=== PATIENT | male | born 1970 | race Caucasian/White ===

== ENCOUNTER 2024-07-23 20:38 | Inpatient (IN) | payer MEDICAID, OTHER ==
[~2024-07-23] VITALS: Ht 180.3 cm; Wt 130.9 kg
[~2024-07-23 20:38] MED LIST: CARV12.544 PO; DULA0.5I SC; LISI-707 PO; METF-372 PO
--- NOTE | 2024-07-23 20:55 | ED.PDOC ---
Musculoskeletal HPI Comments 54-year-old male came to ER via EMS for right foot pain. Patient has history of hypertension and diabetes, status post partial amputation right foot. Two days ago, patient went to his primary care provider for a right foot infection. Shortly afterwards, patient is started developing fever and chills, was having episodes nausea and vomiting. Patient unable to tolerate any intake. Upon arrival of paramedics, patient hypotensive at 60/33 mmHg, tachycardic at 110 bpm, febrile at 102 F Chief Complaint: Lower Extremity Time Seen by MD: 20:54 Reviewed Notes: Backend Developer Notes Allergies: Coded Allergies: No Known Drug Allergy (Verified Allergy, Unknown, 07/23/24) Information Source: Patient, Emergency Med Personnel Mode of Arrival: EMS Location: Right Extremity Location: Foot Timing: Days Prehospital treatment: None Severity: Moderate Able to Move Extremity: Yes Bear Weight: Limited Pain: Moderate Hand Dominance: Right Mechanism: Spontaneous Circumstances: Spontaneous Onset of Symptoms: Spontaneous Symptoms: Swelling, Pain Associated signs and symptoms: Foot pain (roght) Past Medical History PAST MEDICAL HISTORY: DM, HTN Surgical History (Other): Partial amputation right foot Family History Family History: Reviewed,noncontributory to illness Social History Smoker: Non-Smoker Alcohol: Denies ETOH Use Drugs: Denies Drug Use Lives In: Home Constitutional: reports: chills, fever; denies: diaphoresis, fatigue, malaise, sweats, weakness, others EENTM: denies: blurred vision, double vision, ear bleeding, ear discharge, ear drainage, ear pain, ear ringing, eye pain, eye redness, hearing loss, mouth pain, mouth swelling, nasal discharge, nose bleeding, nose congestion, nose pain, photophobia, tearing, throat pain, throat swelling, voice changes, others Respiratory: denies: cough, hemoptysis, orthopnea, SOB at rest, shortness of breath, SOB with excertion, stridor, wheezing, others Cardiovascular: denies: chest pain, dizzy spells, diaphoresis, Dyspnea on exertion, edema, irregular heart beat, left arm pain, lightheadedness, palpitations, PND, syncope, others Gastrointestinal: reports: nausea, poor appetite, vomiting; denies: abdomen distended, abdominal pain, blood streaked bowels, constipated, diarrhea, dysphagia, difficulty swallowing, hematemesis, melena, poor fluid intake, rectal bleeding, rectal pain, others Genitourinary: denies: burning, dysuria, flank pain, frequency, hematuria, incontinence, penile discharge, penile sore, pain, testicle pain, testicle swelling, urgency, others Neurological: denies: dizziness, fainting, headache, left sided numbness, left sided weakness, numbness, paresthesia, pre-existing deficit, right sided numbness, right sided weakness, seizure, speech problems, tingling, tremors, weakness, others Musculoskeletal: denies: back pain, gout, joint pain, joint swelling, muscle pain, muscle stiffness, neck pain, others Integumetry: reports: wounds (Partial amputation right foot); denies: bruises, change in color, change in hair/nails, dryness, laceration, lesions, lumps, rash, others Allergic/Immunocompromised: denies: Difficulty Healing, Frequent Infections, Hives, Itching, others Hematologic/Lymphatic: denies: anemia, blood clots, easy bleeding, easy bruising, swollen glands, others Endocrine: denies: excessive hunger, excessive sweating, excessive thirst, excessive urination, flushing, intolerance to cold, intolerance to heat, unexplained weight gain, unexplained weight loss, others Psychiatric: denies: anxiety, bipolar disorder, depression, hopeless, panic disorder, schizophrenia, sleepless, suicidal, others Physical Exam General Appearance: No Apparent Distress, Normal HEENT: Normal ENT Inspection, Pharynx Normal, TMs Normal Neck: Full Range of Motion, Non-Tender, Normal, Normal Inspection Respiratory: Chest Non-Tender, Lungs Clear, No Accessory Muscle Use, No Respiratory Distress, Normal Breath Sounds Cardiovascular: No Edema, No JVD, No Murmur, No Gallop, Normal Peripheral Pulses, Regular Rate/Rhythm Breast Exam: Deferred Gastrointestinal: No Organomegaly, Non Tender, No Pulsatile Mass, Normal Bowel Sounds, Soft Genitalia: Deferred Pelvic: Deferred Rectal: Deferred Extremities: No calf tenderness, Normal capillary refill, Normal range of motion, Non-tender, No pedal edema, Other (Partial amputation right foot) Musculoskeletal : Apperance: Normal Neurologic: Alert, nanosystems engineer II-XII nml as Tested, No Motor Deficits, Normal Affect, Normal Mood, No Sensory Deficits Cerebellar Function: Normal Reflexes: Normal Skin: Dry, Normal Color, Warm Lymphatic: No Adenopathy Was a procedure done? Was a procedure done?: No Differential Diagnosis EXT Differential Diagnosis: Cellulitis, Septic, Other (abscess) X-Ray, Labs, Meds, VS Vital Signs Date Time Temp Pulse Resp B/P (MAP) Pulse Ox O2 Delivery O2 Flow Rate FiO2 07/23/24 22:00 97.9 99 18 90/58 (69) 98 97.9 07/23/24 21:00 Nasal Cannula* 2 28 07/23/24 21:00 98.1 105 18 82/54 (63) 98 98.1 07/23/24 20:47 97.1 113 20 60/55 (57) 95 97.1 07/23/24 20:40 109 Lab Test 07/23/24 21:02 Range/Units White Blood Count 27.8 H 4.4-10.8 10^3/uL Red Blood Count 4.94 4.5-5.90 10^6/uL Hemoglobin 11.8 L 13.5-17.5 g/dL Hematocrit 37.2 L 41.0-53.0 % Mean Corpuscular Volume 75.3 L 80.0-100.0 fL Mean Corpuscular Hemoglobin 23.9 L 28.0-32.0 pg Mean Corpuscular Hemoglobin Concent 31.7 L 32.0-36.0 g/dL Red Cell Distribution Width 17.7 H 11.8-14.3 % Platelet Count 447 140-450 10^3/uL Mean Platelet Volume 7.5 6.9-10.8 fL Neutrophils (%) (Auto) 37.0-80.0 % Lymphocytes (%) (Auto) 10.0-50.0 % Monocytes (%) (Auto) 0.0-12.0 % Basophils (%) (Auto) 0.0-2.0 % Neutrophils # (Auto) 1.6-8.6 10 ^3/uL Lymphocytes # (Auto) 0.4-5.4 10 ^3/uL Monocytes # (Auto) 0-1.3 10 ^3/uL Differential Total Cells Counted 100.0 100 Neutrophils % (Manual) 80 37.0-80.0 Band Neutrophils % (Manual) 13 Lymphocytes % (Manual) 2 L 10.0-50.0 Monocytes % (Manual) 4 0-12 Eosinophils % (Manual) 0 0-7 Basophils % (Manual) 0 0.0-2.0 Metamyelocytes % (manual) 1 Myelocytes % (Manual) 0 Promyelocytes % (Manual) 0 Blast Cells % (Manual) 0 Reactive Lymphocytes 0 Platelet Estimate Adequate Hypochromasia (manual) Moderate Anisocytosis (manual) Slight Prothrombin Time 11.7 9.3-11.8 sec Prothrombin Time INR 1.12 0.9-1.15 Activated Partial Thromboplast Time 30.0 24.5-34.5 SEC Sodium Level 132 L 136-145 mmol/L Potassium Level 4.0 3.5-5.1 mmol/L Chloride Level 101 98-107 mmol/L Carbon Dioxide Level 21 20-31 mmol/L Anion Gap 10 5-15 Blood Urea Nitrogen 25 H 9-23 mg/dL Creatinine 1.73 H 0.700-1.30 mg/dL Glomerular Filtration Rate Calc 46 >90 mL/min BUN/Creatinine Ratio 14.5 10.0-20.0 Serum Glucose 253 H 74-106 mg/dL Lactic Acid Level 2.1 *H 0.4-2.0 mmol/L Calcium Level 9.6 8.7-10.4 mg/dL Total Bilirubin 1.1 H 0.2-1.0 mg/dL Aspartate Amino Transferase (AST) 8 L 13-40 U/L Alanine Aminotransferase (ALT) < 9 7-40 U/L Alkaline Phosphatase 70 46-116 U/L Total Protein 7.9 5.7-8.2 g/dL Albumin 4.1 3.2-4.8 g/dL Current Medications Medications (Trade) Dose Ordered Sig/Nimesh Route Start Time Stop Time Status Last Admin Piperacillin Sod/ Tazobactam Sod 100 ml @ 100 mls/hr ONCE ONCE IV 07/23/24 21:00 07/23/24 21:59 DC 07/23/24 21:29 Vancomycin HCl 200 ml @ 200 mls/hr ONCE ONCE IV 07/23/24 21:00 07/23/24 21:59 DC 07/23/24 22:30 Sodium Chloride 2,000 ml @ 1,000 mls/hr Q2H ONCE IV 07/23/24 21:30 07/23/24 23:29 07/23/24 21:29 Time of 1ST Reevaluation: 20:49 Reevaluation 1ST: Unchanged Patient Education/Counseling: Diagnosis, Treatment Family Education/Counseling: No Family Present Departure 1 Departure Time of Disposition: 22:33 Impression: Primary Impression: Cellulitis of right foot Additional Impression: Diabetic foot ulcer Disposition: 09 ADMITTED INPATIENT Condition: Guarded Discharged With: Self Comments Right Foot Infection with Hypotension Chief Complaint: Right foot wound with fever and hypotension History of Present Illness: 54-year-old male with history of type 2 diabetes and right foot partial amputation presents with worsening right foot wound of one month duration. Patient reports associated malaise, nausea, and vomiting for the past two days. EMS brought patient to ED due to hypotension. The wound is located at the distal end of his partial right foot amputation site, which was performed several months ago. Patient was found to be hypotensive on arrival. Review of Systems: Constitutional: Positive for malaise Gastrointestinal: Positive for nausea and vomiting Skin: Right foot wound All other systems reviewed and negative Medications: Not documented in foreign student adviser Allergies: Not documented in foreign student adviser Past Medical History: 1. Type 2 Diabetes Mellitus 2. Hypertension Past Surgical History: Right foot partial amputation Vital Signs: Initial presentation: Hypotensive After fluid resuscitation: BP 94/63 Physical Exam: Right Foot: - 4cm diameter open ulceration at the distal end of partial amputation site - Significant swelling noted Lab Results: WBC: 27.8 (Elevated) Lactic acid: 2.1 (Elevated) Creatinine: 1.73 (Elevated) BUN: 25 Glucose: 253 Imaging and Other Relevant Results: Right Foot X-ray: - Significant soft tissue swelling - Radiologist recommends MRI to rule out osteomyelitis Medical Decision Making: Summary Statement: 54-year-old diabetic male presents with infected right foot wound, sepsis, and hypotension requiring fluid resuscitation and broad-spectrum antibiotics. Problem List: 1. Right foot infection/cellulitis 2. Sepsis with hypotension 3. Acute kidney injury 4. Poorly controlled diabetes Differential Diagnosis: 1. Cellulitis 2. Osteomyelitis 3. Sepsis 4. Diabetic foot infection 5. Deep tissue infection ED Course: Patient received 30cc/kg IV fluid bolus for hypotension. Started on broad-spectrum antibiotics (Vancomycin and Zosyn). Blood pressure improved after fluid resuscitation. Assessment and Plan: 1. Right Foot Infection/Cellulitis: - Admit for IV antibiotics (Vancomycin and Zosyn) - MRI of right foot to evaluate for osteomyelitis - Wound care consultation 2. Sepsis with Hypotension: - Responded to initial fluid resuscitation - Continue to monitor hemodynamics - Serial lactate measurements 3. Acute Kidney Injury: - Likely pre-renal due to sepsis - Monitor urine output - Serial creatinine measurements 4. Diabetes: - Continue home medications - Endocrine consultation Disposition: Admit to medical floor with upgrade to ICU if clinical deterioration Billing Information: ICD-10: L03.115 - Cellulitis of right lower limb ICD-10: R65.20 - Severe sepsis without septic shock ICD-10: E11.621 - Type 2 diabetes mellitus with foot ulcer ICD-10: N17.9 - Acute kidney injury, unspecified Critical Care Note Critical Care Time?: Yes (45 min-critical care time only) Critical care comment: Hypotension Total critical care time: Approximately 36 minutes Due to a high probability of clinically significant, life threatening deterioration, the patient required my highest level of preparedness to intervene emergently and I personally spent this critical care time directly and personally managing the patient. This critical care time included obtaining a history; examining the patient; pulse oximetry; ordering and review of studies; arranging urgent treatment with development of a management plan; evaluation of patient's response to treatment; frequent reassessment; and, discussions with other providers. This critical care time was performed to assess and manage the high probability of imminent, life-threatening deterioration that could result in multi-organ failure. It was exclusive of separately billable procedures and treating other patients. Stability Stability form required: No Heart Score Heart Score: Heart Score Response (Comments) Value History N/A 0 EKG N/A 0 Age N/A 0 Risk Factors N/A 0 Troponin N/A 0 Total 0 I personally scribed for MARK THOMPSON MD ([email or web address]) on 07/23/24 at 20:55. Electronically submitted by Oren Martinez ([email or web address]). MARK THOMPSON MD Jul 23, 2024 20:55
[2024-07-23 21:24] LABS: Hematocrit 37.2 % (41.0-53.0); Hemoglobin 11.8 g/dL (13.5-17.5); Mean Corpuscular Hemoglobin 23.9 pg (28.0-32.0); Mean Corpuscular Hgb Conc. 31.7 g/dL (32.0-36.0); Mean Corpuscular Volume 75.3 fL (80.0-100.0); Platelet Count (auto) 447 10^3/uL (140-450); Red Blood Cells 4.94 10^6/uL (4.5-5.90); Red Cell Distribution Width 17.7 % (11.8-14.3); White Blood Cell 27.8 10^3/uL (4.4-10.8)
[2024-07-23 21:27] LABS: Basophils % (manual) 0 (0.0-2.0); Blast Cells 0; Eosinophils % (manual) 0 (0-7); Myelocytes % 0; Promyelocytes % 0; Reactive Lymphocytes 0
--- NOTE | 2024-07-23 21:27 | DVH ---
C so many EXAM: XY R FOOT 3 VIEW XRAY HISTORY: right foot infection s/p partial amputation COMPARISON: None TECHNIQUE: Three views of the right foot were performed. FINDINGS: Patient has had a amputation of the forefoot at the level of the tarsometatarsal joints. The middle m edial and lateral cuneiforms are still present cuboid is nearly disintegrated. There is generalized soft tissue swelling and a very large osteophyte at the attachment of the Achill es to the calcaneus in small plantar spur at the attachment of the plantar fascia of the calcaneus. There is demineralization of the remnant cuboid. Follow-up MRI examination is suggested to rule out osteomyelitis IMPRESSION: 1. Patient underwent midfoot amputation and there is fragmentation of the remaining cuboid. And signi ficant soft tissue swelling. Follow-up MRI is recommended
--- NOTE | 2024-07-23 21:28 | DVH ---
CHEST RADIOGRAPH Indication: SOB Technique: Single frontal view of the chest was obtained Comparison: None FINDINGS: Lines and Tubes: None Lungs: Clear Pleura: No effusion. No pneumothorax. Cardiomediastinal contours: Mild cardiomegaly Bones: Unremarkable IMPRESSION: Clear lungs.
[2024-07-23] MEDS: SODIUM CHLORIDE 0.9% 2,000 ML IV ONE (21:29)
[2024-07-23] MEDS: PIPERACILLIN-TAZOB 3.375GM 100 ML IV ONE (21:29)
[2024-07-23 21:37] LABS: Albumin 4.1 g/dL (3.2-4.8); Alkaline Phosphatase 70 U/L (46-116); Anion Gap 10 (5-15); BUN/Creatinine Ratio 14.5 (10.0-20.0); Bilirubin, Total 1.1 mg/dL (0.2-1.0); Calcium 9.6 mg/dL (8.7-10.4); Carbon Dioxide 21 mmol/L (20-31); Chloride 101 mmol/L (98-107); Total Protein 7.9 g/dL (5.7-8.2)
[2024-07-23 21:38] LABS: Alanine Aminotransferase < 9 U/L (7-40); Aspartate Aminotransferase 8 U/L (13-40); Blood Urea Nitrogen 25 mg/dL (9-23); Glucose 253 mg/dL (74-106); Sodium 132 mmol/L (136-145)
[2024-07-23 21:39] LABS: INR 1.12 (0.9-1.15); Prothrombin Time 11.7 sec (9.3-11.8)
[2024-07-23 21:40] LABS: Lactic Acid w/Reflex 2.1 mmol/L (0.4-2.0)
[2024-07-23 22:05] LABS: Anisocytosis Slight; Band Neutrophils % (manual) 13; Lymphocytes % (manual) 2 (10.0-50.0); Metamyelocytes % 1; Monocytes % (manual) 4 (0-12); Platelet Estimate Adequate
[2024-07-23 22:06] LABS: Hypochromia Moderate
[2024-07-23] MEDS: SODIUM CHLORIDE 0.9% 2,250 ML IV ONE (22:30)
[2024-07-23] MEDS: VANCOMYCIN 1GM/200ML PM 200 ML IV ONE (22:30)
[2024-07-23] MEDS ORDERED: DEXTROSE (50%) 50ML SYRG IV PRN (22:45)
[2024-07-23] MEDS ORDERED: VANCOMYCIN PER PHARMACY 0 MG IV SCH (22:45)
[2024-07-23] MEDS: SODIUM CHLORIDE 0.9% 1,000 ML IV ONE (22:57)
--- NOTE | 2024-07-23 23:15 | DVHHP2 ---
History of Present Illness Reason for Visit: foot injury History of Present Illness 54-year-old male past medical history of diabetes hypertension comes to the ED for evaluation status post partial right foot amputation patient had surgery 2 days ago and has severe midfoot soft tissue swelling x-ray was completed showing severe edema patient during evaluation in the ED was shown to be febrile with temperatures as high as 102 possible with tachycardia hypotension with suspected sepsis secondary to infection Cardiovascular: HTN Dermatology: Cellulitis Review of Systems Constitutional: Yes: Fever Eyes: No: Pain, Vision change, Conjunctivae inflammation, Eyelid inflammation, Other, Redness ENT: No: Ear pain, Ear discharge, Nose pain, Nose discharge, Nose congestion, Mouth pain, Mouth swelling, Throat pain, Throat swelling, Other Respiratory: No: Cough, Dry, Shortness of breath, SOB with excertion, Wheezing, Hemoptysis, Pleuritic Pain, Sputum, Wheezing, Other Cardiovascular: No: Chest Pain, Palpitations, Orthopnea, Paroxysmal Noc. Dyspnea, Edema, Lt Headedness, Other Gastrointestinal: Nausea, Vomiting; No: Abdominal Pain, Diarrhea, Constipation, Melena, Hematochezia, Other Genitourinary: No Dysuria, No Frequency, No Incontinence, No Hematuria, No Retention, No Other Musculoskeletal: No: other, neck pain, shoulder pain, arm pain, back pain, hand pain, leg pain, foot pain Skin: No: Rash, Lesions, Jaundice, Bruising, Other Neurological: Weakness Allergies: Coded Allergies: No Known Drug Allergy (Verified Allergy, Unknown, 07/23/24) Exam Vital Signs Vital Signs Date Time Temp Pulse Resp B/P (MAP) Pulse Ox O2 Delivery O2 Flow Rate FiO2 07/23/24 22:00 97.9 99 18 90/58 (69) 98 97.9 07/23/24 21:00 Nasal Cannula* 2 28 Exam General Appearance: No Apparent Distress, Normal HEENT: Normal ENT Inspection, Pharynx Normal, TMs Normal Neck: Full Range of Motion, Non-Tender, Normal, Normal Inspection Respiratory: Chest Non-Tender, Lungs Clear, No Accessory Muscle Use, No Respiratory Distress, Normal Breath Sounds Cardiovascular: No Edema, No JVD, No Murmur, No Gallop, Normal Peripheral Pulses, Regular Rate/Rhythm Breast Exam: Deferred Gastrointestinal: No Organomegaly, Non Tender, No Pulsatile Mass, Normal Bowel Sounds, Soft Genitalia: Deferred Pelvic: Deferred Rectal: Deferred Extremities: No calf tenderness, Normal capillary refill, Normal range of motion, Non-tender, No pedal edema, Other (Partial amputation right foot) Musculoskeletal : Appearance: Normal Neurologic: Alert, surveillance camera technician II-XII nml as Tested, No Motor Deficits, Normal Affect, Normal Mood, No Sensory Deficits Cerebellar Function: Normal Reflexes: Normal Skin: Dry, Normal Color, Warm Lymphatic: No Adenopathy Labs/Xrays Labs Test 07/23/24 21:02 Range/Units White Blood Count 27.8 H 4.4-10.8 10^3/uL Red Blood Count 4.94 4.5-5.90 10^6/uL Hemoglobin 11.8 L 13.5-17.5 g/dL Hematocrit 37.2 L 41.0-53.0 % Mean Corpuscular Volume 75.3 L 80.0-100.0 fL Mean Corpuscular Hemoglobin 23.9 L 28.0-32.0 pg Mean Corpuscular Hemoglobin Concent 31.7 L 32.0-36.0 g/dL Red Cell Distribution Width 17.7 H 11.8-14.3 % Platelet Count 447 140-450 10^3/uL Mean Platelet Volume 7.5 6.9-10.8 fL Neutrophils (%) (Auto) 37.0-80.0 % Lymphocytes (%) (Auto) 10.0-50.0 % Monocytes (%) (Auto) 0.0-12.0 % Basophils (%) (Auto) 0.0-2.0 % Neutrophils # (Auto) 1.6-8.6 10 ^3/uL Lymphocytes # (Auto) 0.4-5.4 10 ^3/uL Monocytes # (Auto) 0-1.3 10 ^3/uL Differential Total Cells Counted 100.0 100 Neutrophils % (Manual) 80 37.0-80.0 Band Neutrophils % (Manual) 13 Lymphocytes % (Manual) 2 L 10.0-50.0 Monocytes % (Manual) 4 0-12 Eosinophils % (Manual) 0 0-7 Basophils % (Manual) 0 0.0-2.0 Metamyelocytes % (manual) 1 Myelocytes % (Manual) 0 Promyelocytes % (Manual) 0 Blast Cells % (Manual) 0 Reactive Lymphocytes 0 Platelet Estimate Adequate Hypochromasia (manual) Moderate Anisocytosis (manual) Slight Prothrombin Time 11.7 9.3-11.8 sec Prothrombin Time INR 1.12 0.9-1.15 Activated Partial Thromboplast Time 30.0 24.5-34.5 SEC Sodium Level 132 L 136-145 mmol/L Potassium Level 4.0 3.5-5.1 mmol/L Chloride Level 101 98-107 mmol/L Carbon Dioxide Level 21 20-31 mmol/L Anion Gap 10 5-15 Blood Urea Nitrogen 25 H 9-23 mg/dL Creatinine 1.73 H 0.700-1.30 mg/dL Glomerular Filtration Rate Calc 46 >90 mL/min BUN/Creatinine Ratio 14.5 10.0-20.0 Serum Glucose 253 H 74-106 mg/dL Lactic Acid Level 2.1 *H 0.4-2.0 mmol/L Calcium Level 9.6 8.7-10.4 mg/dL Total Bilirubin 1.1 H 0.2-1.0 mg/dL Aspartate Amino Transferase (AST) 8 L 13-40 U/L Alanine Aminotransferase (ALT) < 9 7-40 U/L Alkaline Phosphatase 70 46-116 U/L Total Protein 7.9 5.7-8.2 g/dL Albumin 4.1 3.2-4.8 g/dL Assessment/Plan Assessment/Plan Admit to step-down unit due to hypotension Right diabetic foot ulcer Status post partial amputation Suspected right foot osteomyelitis Patient meets sepsis criteria Podiatry consultation History of stated JONATHAN Currently elevated creatinine at 1.7 BUN of 25 IV hydration IV antibiotics vanco and Zosyn History of diabetes Insulin sliding scale aggressive ACH MRI ordered for soft tissue evaluation and bone evaluation of her suspected osteo ICD-10: L03.115 - Cellulitis of right lower limb ICD-10: R65.20 - Severe sepsis without septic shock Suspected osteomyelitis ICD-10: E11.621 - Type 2 diabetes mellitus with foot ulcer ICD-10: N17.9 - Acute kidney injury, unspecified Critical care time 45 minutes Plan discussed with: Patient My Orders Orders - JESSICA MORALEZ MD Procedure Category Date Status Time Admit ADMIT 07/23/24 Transmitted 22:34 Code Status CODE 07/23/24 Transmitted 22:34 Vital Signs DEENA 07/23/24 In Process 22:34 Review Orders With DEENA 07/23/24 In Process Adm. 22:34 Notify Md Of Changes [facility] 07/23/24 In Process From Base 22:34 Advance Directive DEENA 07/23/24 In Process 22:34 Patient Condition ORDERS 07/23/24 Transmitted 22:34 Allergies DEENA 07/23/24 In Process 22:34 Notify Md Of Changes [facility] 07/23/24 In Process From Base 22:34 Surgical Instrument Technician For [facility] 07/23/24 In Process 24 Hours 22:34 Emergency Dysrhythmia DEENA 07/23/24 In Process Protocol 22:34 Rhythm Strips Once DEENA 07/23/24 In Process Every Shift 22:34 Oxygen By Nasal RT 07/23/24 Transmitted Cannula 22:34 Vancomycin Per PHA 07/23/24 Pending Pharmacy 22:45 Piperacillin-Tazob PH[facility] 07/24/24 In Process 3.375gm (Zosyn 3.375g 06:00 Sodium Chloride 0.9% PHA 07/23/24 In Process 22:45 *Podiat[address] Consult Dr[address] NIX 07/23/24 Transmitted Fanous 22:34 Glucose Blood PHA 07/24/24 In Process (Accu-Chek Comfort 07:00 Insulin R (Human) PHA 07/24/24 In Process (Insulin R) 07:00 Insulin R (Human) PHA 07/24/24 In Process (Insulin R) 22:00 Dextrose 50% Syringe PHA 07/23/24 In Process 22:45 Mri R Foot Wo Contrast MRI 07/23/24 Logged 22:34 Consistent DIET 07/24/24 Transmitted Carb(Ccho)Diabetes Breakfast Date of Service: Jul 23, 2024 Billing Provider: JESSICA MORALEZ MD Common Visit Codes: [id number]-[id number] CARE 30-74 MIN JESSICA MORALEZ MD Jul 23, 2024 23:15
[2024-07-24] VITALS (18 sets, daily range): BP systolic 90–130; BP diastolic 45–76; PULSE 77–102; RESP 11–19; TEMP 97.5–98; O2SAT 90–100
[2024-07-24] MEDS: SODIUM CHLORIDE 0.9% 1,000 ML IV SCH ×2 (01:30→11:09)
[2024-07-24] MEDS: PIPERACILLIN-TAZOB 3.375GM 100 ML IV SCH (06:11)
[2024-07-24] MEDS: ACCU-CHEK COMFORT CURVE STRIP VI SCH (06:26)
[2024-07-24] MEDS: InsuLIN REG 1unit/0.01ml Soln (100units/ml) SC SCH ×2 (06:29→21:48)
--- NOTE | 2024-07-24 10:17 | ECG ---
[facility] Test Date: 2024-07-23 Test Time: 20:40:08 Pat Name: SULY GOEL Department: ED Room: 0283T Gender: M Inside Phone Sales: ER : 1970 Requested By: MARK THOMPSON Order Number: [id number] Reading MD: Rafael Nelson Measurements Intervals [place] Rate: 109 P: 52 NV: 149 QRS: 22 QRSD: 94 T: 60 QT: 338 QTc: 456 Interpretive Statements Sinus tachycardia Baseline wander in lead(s) V1 Electronically Signed On 07-26-2024 20:25:14 PDT by Rafael Nelson Please click the below link to view image of tracing.
[2024-07-24 10:51] LABS: Albumin 3.6 g/dL (3.2-4.8); Alkaline Phosphatase 62 U/L (46-116); Anion Gap 9 (5-15); Aspartate Aminotransferase 23 U/L (13-40); BUN/Creatinine Ratio 19.1 (10.0-20.0); Carbon Dioxide 21 mmol/L (20-31); Chloride 104 mmol/L (98-107); Total Protein 6.9 g/dL (5.7-8.2)
[2024-07-24 10:52] LABS: Bilirubin, Total 0.5 mg/dL (0.2-1.0)
[2024-07-24 10:55] LABS: Alanine Aminotransferase < 9 U/L (7-40); Blood Urea Nitrogen 29 mg/dL (9-23); Calcium 8.7 mg/dL (8.7-10.4); Glucose 259 mg/dL (74-106); Sodium 134 mmol/L (136-145)
[2024-07-24 10:57] LABS: Basophils # (auto) 0.1 10 ^3/uL (0-0.2); Basophils % (auto) 0.5 % (0.0-2.0); Eosinophils # (auto) 0.2 10 ^3/uL (0-0.8); Eosinophils % (auto) 1.2 % (0.0-7.0); Hematocrit 32.9 % (41.0-53.0); Hemoglobin 10.6 g/dL (13.5-17.5); Lymphocytes # (auto) 1.5 10 ^3/uL (0.4-5.4); Lymphocytes % (auto) 7.9 % (10.0-50.0); Mean Corpuscular Hemoglobin 24.1 pg (28.0-32.0); Mean Corpuscular Hgb Conc. 32.1 g/dL (32.0-36.0); Mean Corpuscular Volume 74.9 fL (80.0-100.0); Monocytes # (auto) 1.1 10 ^3/uL (0-1.3); Monocytes % (auto) 5.8 % (0.0-12.0); Neutrophils % (auto) 84.6 % (37.0-80.0); Nucleated Red Blood Cells % 0.3 %; Platelet Count (auto) 372 10^3/uL (140-450); Red Cell Distribution Width 17.8 % (11.8-14.3); White Blood Cell 18.9 10^3/uL (4.4-10.8)
--- NOTE | 2024-07-24 12:05 | DVH ---
CLINICAL INDICATION: 54 years old, Male; suspected osteo. COMPARISON: Radiographs of the right foot performed on 07/24/2024. TECHNIQUE: Multiplanar, multisequence MRI of the right foot without intravenous contrast. Contrast: None. INTERPRETATION: Bones: There is evidence of amputation at the level of the midfoot. There is hypointensity in the ca lcaneus, navicular bone, cuneiforms with corresponding edema consistent with osteomyelitis. Soft tissues: Diffuse soft tissue edema at the resection margin in the foot extending to the plantar surface of the foot where there soft tissue thickening. There are joint effusions in between the cun eiforms and at the talonavicular and calcaneocuboid joint. There is an ankle joint effusion. IMPRESSION: 1. Osteomyelitis involving the calcaneus, navicular and cuneiforms. 2. Diffuse cellulitis in the midfoot.
--- NOTE | 2024-07-24 12:41 | DVHINCON2 ---
Date Seen: Jul 24, 2024 Reason for Consultation Right foot wound History of Present Illness Patient is a 54-year-old male who presents to the ER for evaluation of the right foot wound. Patient has been seeing Wound Care right [place]. Patient had recent debridement. Patient was previously in the hospital at [facility] infection in his right foot. Patient was sent over to Infectious Disease to get IV antibiotics. Patient was told to go to the ER if he was feeling fevers and chills. Patient is now following up in the ER due to fevers, chills. Past Medical History See H&P Past Surgical History See H&P Allergies: Coded Allergies: No Known Drug Allergy (Verified Allergy, Unknown, 07/23/24) Current Medications Current Medications Medications (Trade) Dose Ordered Sig/Nimesh Route PRN Reason Start Time Stop Time Status Last Admin Vancomycin HCl 0 ml @ 0 mls/hr UD IV 07/23/24 22:45 Piperacillin Sod/ Tazobactam Sod 100 ml @ 100 mls/hr Q8HP IV 07/24/24 06:00 07/24/24 06:11 Sodium Chloride 1,000 ml @ 30 mls/hr Q24H IV 07/23/24 22:45 07/24/24 10:08 DC 07/24/24 01:30 Diagnostic Test (Pha) (Accu-Chek Comfort Curve T) 1 strip ACHS 07/24/24 07:00 07/24/24 11:30 Insulin Human Regular (InsuLIN R) AC SC 07/24/24 07:00 07/24/24 12:01 Insulin Human Regular (InsuLIN R) HS SC 07/24/24 22:00 Dextrose 50 ml UD PRN IV Blood Sugar LESS THAN 60 07/23/24 22:45 Sodium Chloride 1,000 ml @ 150 mls/hr Q6H40M IV 07/24/24 10:15 07/24/24 11:09 Vital Signs Vital Signs Date Time Temp Pulse Resp B/P (MAP) Pulse Ox O2 Delivery O2 Flow Rate FiO2 07/24/24 11:00 85 14 105/55 (72) 07/24/24 10:00 96 07/24/24 09:04 Nasal Cannula* 2 28 07/24/24 09:00 97.5 97.5 Physical Exam Dermatological: Skin is dry with mild erythema and some maceration around the wound site TMA of the right foot Mild non-pitting edema present bilaterally Wound: Location:Right plantar foot Measures: 6 cm in length, 4 cm in width, and 1 cm in depth. Depth: Full thickness Base: Mix of granulation/slough Drainage: None Odor: None Periwound: cellulitis Vascular: Dorsalis pedis and posterior tibial pulses are 1+ bilaterally Capillary refill is under 2 seconds Skin temperature is warm bilaterally Neurologic: Protective sensation is absent on the plantar forefoot bilaterally Monofilament testing reveals decreased sensation in multiple plantar sites Musculoskeletal: Range of motion at the ankle and MTP joints is within normal limits. Strength is 5/5 in all tested muscle groups. Gait is antalgic due to offloading of the affected limb. Labs/Diagnostic Data Labs Test 07/24/24 11:51 07/24/24 09:15 07/23/24 22:53 07/23/24 21:02 Range/Units POC Glucose 191 H 70-106 mg/dl White Blood Count 18.9 #H 4.4-10.8 10^3/uL Red Blood Count 4.40 L 4.5-5.90 10^6/uL Hemoglobin 10.6 L 13.5-17.5 g/dL Hematocrit 32.9 #L 41.0-53.0 % Mean Corpuscular Volume 74.9 L 80.0-100.0 fL Mean Corpuscular Hemoglobin 24.1 L 28.0-32.0 pg Mean Corpuscular Hemoglobin Concent 32.1 32.0-36.0 g/dL Red Cell Distribution Width 17.8 H 11.8-14.3 % Platelet Count 372 140-450 10^3/uL Mean Platelet Volume 8.0 6.9-10.8 fL Neutrophils (%) (Auto) 84.6 H 37.0-80.0 % Lymphocytes (%) (Auto) 7.9 L 10.0-50.0 % Monocytes (%) (Auto) 5.8 0.0-12.0 % Eosinophils (%) (Auto) 1.2 0.0-7.0 % Basophils (%) (Auto) 0.5 0.0-2.0 % Neutrophils # (Auto) 16.0 H 1.6-8.6 10 ^3/uL Lymphocytes # (Auto) 1.5 0.4-5.4 10 ^3/uL Monocytes # (Auto) 1.1 0-1.3 10 ^3/uL Eosinophils # (Auto) 0.2 0-0.8 10 ^3/uL Basophils # (Auto) 0.1 0-0.2 10 ^3/uL Nucleated Red Blood Cells 0.3 % Sodium Level 134 L 136-145 mmol/L Potassium Level 5.0 3.5-5.1 mmol/L Chloride Level 104 98-107 mmol/L Carbon Dioxide Level 21 20-31 mmol/L Anion Gap 9 5-15 Blood Urea Nitrogen 29 H 9-23 mg/dL Creatinine 1.52 H 0.700-1.30 mg/dL Glomerular Filtration Rate Calc 54 >90 mL/min BUN/Creatinine Ratio 19.1 10.0-20.0 Serum Glucose 259 H 74-106 mg/dL Hemoglobin A1c 9.2 H <5.7 % A1C Calcium Level 8.7 8.7-10.4 mg/dL Magnesium Level 1.5 L 1.6-2.6 mg/dL Total Bilirubin 0.5 0.2-1.0 mg/dL Aspartate Amino Transferase (AST) 23 13-40 U/L Alanine Aminotransferase (ALT) < 9 7-40 U/L Alkaline Phosphatase 62 46-116 U/L Total Protein 6.9 5.7-8.2 g/dL Albumin 3.6 3.2-4.8 g/dL Lactic Acid Level 1.4 0.4-2.0 mmol/L Differential Total Cells Counted 100.0 100 Neutrophils % (Manual) 80 37.0-80.0 Band Neutrophils % (Manual) 13 Lymphocytes % (Manual) 2 L 10.0-50.0 Monocytes % (Manual) 4 0-12 Eosinophils % (Manual) 0 0-7 Basophils % (Manual) 0 0.0-2.0 Metamyelocytes % (manual) 1 Myelocytes % (Manual) 0 Promyelocytes % (Manual) 0 Blast Cells % (Manual) 0 Reactive Lymphocytes 0 Platelet Estimate Adequate Hypochromasia (manual) Moderate Anisocytosis (manual) Slight Prothrombin Time 11.7 9.3-11.8 sec Prothrombin Time INR 1.12 0.9-1.15 Activated Partial Thromboplast Time 30.0 24.5-34.5 SEC Microbiology Date/Time Source Procedure Growth Status 07/23/24 20:50 Blood Blood Culture - Preliminary Resulted Problems(with codes): (1) Diabetic foot ulcer (2) Cellulitis of right foot Plan/Recommendation ASSESSMENT: Patient is a 54-year-old seen in the ER for a right foot wound PLAN: - The patients chart was reviewed, clinical findings were discussed with the patient, the etiologies of the conditions were discussed in detail, and a treatment plan was agreed to at this time, with both oral and written instructions provided. - reviewed advanced imaging - discussed with no abscess found would not pursue amputation as it would require a BKA at this point - recommend patient continues local wound care - patient will need 6 weeks of IV antibiotics - we will follow up with his outpatient sports development officer All questions were answered and concerns addressed to the patient's satisfaction. The patient was given the phone number to the clinic and was told how to make contact with the clinic should any concerns or questions arise. Patient understands that if any questions or concerns arise prior to the next appointment, we should be contacted immediately. FOLLOW-UP: Continue to follow while inpatient Plan discussed with: Patient Date of Service: Jul 24, 2024 Billing Provider: TRE KHAN DPM Common Visit Codes: CONSULT ONLY Consultation Codes: [id number] CONSULT <80MIN TRE KHAN DPM Jul 24, 2024 12:41
[2024-07-24] MEDS: MAGNESIUM SULFATE 1GM/100ML 100 ML IV SCH (13:04)
[2024-07-24 15:04] LABS: Urine Bacteria None Seen /hpf (None Seen)
[2024-07-24 15:27] LABS: Urine Blood Negative /uL (Negative); Urine Clarity Clear (Clear); Urine Color Yellow (Yellow); Urine Protein, UAD TRACE (Negative); Urine Specific Gravity 1.029 (1.001-1.035); Urine Squamous Epithelial Cell None Seen /hpf (<5); Urine Urobilinogen Normal (Negative); Urine WBC 2 /HPF (0-3); Urine pH 5.5 (5.0-9.0)
[2024-07-24 15:34] LABS: Opiate Scree,Urine Neg (NEGATIVE); Phencyclidine Screen, Urine Neg (NEGATIVE)
[2024-07-24 15:36] LABS: Amphetamine Screen, Urine Neg (NEGATIVE); Barbiturate Scree,Urine Neg (NEGATIVE); Benzodiazephine Screen, Urine Neg (NEGATIVE); Cannabinoid Screen, Urine Neg (NEGATIVE); Cocaine Screen, Urine Neg (NEGATIVE)
--- NOTE | 2024-07-24 17:01 | DVHPNRES ---
Progress Note Date Seen: Jul 24, 2024 Resident Creating Document: SHAREE ERICKSON MARCIO Has the PT tested + for MRSA If YES, has PT been informed?: No Medical Necessity Reason Pt with a Central, PICC or Fol: No Subjective Review of Systems This is a 54-year-old male with past medical history of hypertension, diabetes came to the hospital due to dizziness 2 days. Patient has a chronic foot ulcer, underwent amputation 2 years back and since 3 weeks has been open and has purulent discharge. He also reports nausea, vomiting, headache, fever and chill and lower limb pain and discomfort.. He denies chest pain, shortness of breath, abdominal pain, or any recent bowel and bladder habit changes. The patient follows with the Podiatry on outpatient basis weekly.(Dr. Osvaldo Cook). Was previously taking levofloxacin for 2 weeks and was supposed to change antibiotic after an appointment with Dr. Montejo. PMHx: Hypertension, diabetes PSHx: Previous amputation Family history: Not contribute Social history: Denies smoking, or any other drug use. Home medication: Metformin 1000 mg b.i.d., Lantus 55 units morning, 55 units evening, lisinopril, carvedilol Allergic history: No known allergy Patient seen and examined at bedside. Patient is still complaining of right lower limb pain and discomfort Patient reports: No new complaints Changes from previous H/P or p: No Changes Objective vital signs Vital Sign Date Time Temp Pulse Resp B/P (MAP) Pulse Ox O2 Delivery O2 Flow Rate FiO2 07/24/24 16:00 88 07/24/24 15:00 14 99/60 (73) 07/24/24 14:00 95 07/24/24 12:00 97.8 97.8 07/24/24 09:04 Nasal Cannula* 2 28 Total Intake and Output 07/23/24 07/23/24 07/24/24 15:00 23:00 07:00 Intake Total 1100 ml 1450 ml Balance 1100 ml 1450 ml medications Current Medications Medications Dose Ordered Sig/Nimesh Route Start Time Stop Time Status Last Admin Dose Admin Vancomycin HCl 0 ml @ 0 mls/hr UD IV 07/23/24 22:45 Piperacillin Sod/ Tazobactam Sod 100 ml @ 100 mls/hr Q8HP IV 07/24/24 06:00 07/24/24 13:29 100 MLS/HR Diagnostic Test (Pha) 1 strip ACHS 07/24/24 07:00 07/24/24 11:30 1 STRIP Insulin Human Regular AC SC 07/24/24 07:00 07/24/24 12:01 4 UNITS Insulin Human Regular HS SC 07/24/24 22:00 Dextrose 50 ml UD PRN IV 07/23/24 22:45 Sodium Chloride 1,000 ml @ 150 mls/hr Q6H40M IV 07/24/24 10:15 07/24/24 11:09 150 MLS/HR Examination General Appearance: Alert, Oriented X3, Cooperative, No acute distress HEENT: Atraumatic, PERRLA, EOMI, Mucous membrane moist/pink Respiratory: Clear to auscultation, Normal air movement Cardiovascular: Regular rate, Normal S1, Normal S2, No murmurs, no chest wall tenderness Abdominal: Normal bowel sounds, Soft, No tenderness, No hepatospenomegaly, No masses Extremities: Right lower limb are is amputated at the level of fingers Skin: There is an open ulcer 4 x 6 cm at the amputated area with scant amount of purulent discharge Neuro: Normal gait, Normal speech, Strength at 5/5 X4 ext, Normal tone, Sensation intact, Cranial nerves 3-12 NL, Reflexes 2+ Psych/Mental Status: Mental status NL, Mood NL laboratory and microbiology Laboratory Tests 07/24/24 09:15 Test 07/24/24 09:15 Range/Units Serum Glucose 259 H 74-106 mg/dL Microbiology Date/Time Source Procedure Growth Status 07/23/24 21:02 Blood Blood Culture - Preliminary Resulted Labs and/or images reviewed: Labs reviewed by me, Image(s) reviewed by me Problem List/Assessment/Plan Problem List/Assessment/Plan Septic shock, likely due to sepsis Sepsis, likely due to osteomyelitis/cellulitis Diabetic foot Right lower limb cellulitis/osteomyelitis Uncontrolled diabetes type 2 with hyperglycemia History of hypertension Status post partial amputation MRI shows, osteomyelitis involving the calcaneus, navicular and cuneiforms, diffuse cellulitis in the midfoot Podiatry consulted, recommended IV antibiotic for 6 weeks, and outpatient follow up Wound consult Wound dressing Wound/blood culture Empiric antibiotic, vancomycin and Zosyn IV fluid Pain management Possible JONATHAN, likely VMN, baseline record not available IV fluid Hypomagnesemia, repleted Hyponatremia Moderate anemia, microcytic hypochromic DIET: Diabetic diet DVT PROPHYLAXIS: Lovenox CODE STATUS: Goal of care discussed for more than 18 minutes, full code DISPOSITION: LYNN status Patient's status and plan discussed with the patient. Case discussed with Dr. Gu. Plan discussed with: Patient, Other My Orders My Orders Orders - SHAREE ERICKSON RESGENESIS Procedure Category Date Status Time Mrsa Screen TEDDY 07/24/24 In Process 10:07 Sodium Chloride 0.9% PHA 07/24/24 In Process 10:15 Wound Culture W/ Gs TEDDY 07/24/24 In Process 10:07 * Picc Line Consult CONS 07/24/24 Transmitted 14:27 * Wound Consult CONS 07/24/24 Transmitted SHAREE ERICKSON RESDIENT Jul 24, 2024 17:01
[2024-07-24] MEDS: LIDOCAINE 1% (LOCAL ANESTH.) PF 5ml SDV ID ONE (19:42)
[2024-07-24] MEDS: SODIUM CHLOR 0.9% PF (SALINE LOCK) 10ML VIAL/SYR IV SCH (21:44)
[2024-07-24] MEDS: VANCOMYCIN 1.25gm/250mL PREMIX or KIT IV SCH (22:37)
[2024-07-25] VITALS (24 sets, daily range): BP systolic 118–163; BP diastolic 52–91; PULSE 70–96; RESP 11–26; TEMP 98–98.4; O2SAT 88–98
[2024-07-25 04:18] LABS: Basophils # (auto) 0.1 10 ^3/uL (0-0.2); Eosinophils # (auto) 0.3 10 ^3/uL (0-0.8); Lymphocytes # (auto) 1.9 10 ^3/uL (0.4-5.4); Mean Corpuscular Hemoglobin 23.9 pg (28.0-32.0); White Blood Cell 15.5 10^3/uL (4.4-10.8)
[2024-07-25 04:23] LABS: Basophils % (auto) 0.6 % (0.0-2.0); Eosinophils % (auto) 2.2 % (0.0-7.0); Hemoglobin 9.5 g/dL (13.5-17.5); Lymphocytes % (auto) 12.6 % (10.0-50.0); Mean Corpuscular Hgb Conc. 32.7 g/dL (32.0-36.0); Mean Corpuscular Volume 73.3 fL (80.0-100.0); Monocytes % (auto) 6.4 % (0.0-12.0); Neutrophils # (auto) 12.1 10 ^3/uL (1.6-8.6); Neutrophils % (auto) 78.2 % (37.0-80.0); Platelet Count (auto) 402 10^3/uL (140-450); Red Blood Cells 3.96 10^6/uL (4.5-5.90); Red Cell Distribution Width 17.8 % (11.8-14.3)
[2024-07-25 04:32] LABS: Albumin 3.5 g/dL (3.2-4.8); Alkaline Phosphatase 69 U/L (46-116); Anion Gap 7 (5-15); BUN/Creatinine Ratio 21.9 (10.0-20.0); Blood Urea Nitrogen 23 mg/dL (9-23); Calcium 8.9 mg/dL (8.7-10.4); Carbon Dioxide 25 mmol/L (20-31); Chloride 104 mmol/L (98-107); Potassium 4.1 mmol/L (3.5-5.1); Total Protein 6.8 g/dL (5.7-8.2)
[2024-07-25 04:33] LABS: Bilirubin, Total 0.3 mg/dL (0.2-1.0)
[2024-07-25 04:54] LABS: Alanine Aminotransferase < 9 U/L (7-40); Aspartate Aminotransferase < 8 U/L (13-40); Glucose 241 mg/dL (74-106); Sodium 136 mmol/L (136-145)
--- NOTE | 2024-07-25 11:09 | DVHPNRES ---
Progress Note Date Seen: Jul 25, 2024 Resident Creating Document: FRANCISCO MONGE RESIDENT Has the PT tested + for MRSA If YES, has PT been informed?: No Medical Necessity Reason Pt with a Central, PICC or Fol: No Subjective Review of Systems This is a 54-year-old male with past medical history of hypertension, diabetes came to the hospital due to dizziness 2 days. Patient has a chronic foot ulcer, underwent amputation 2 years back and since 3 weeks has been open and has purulent discharge. He also reports nausea, vomiting, headache, fever and chill and lower limb pain and discomfort.. He denies chest pain, shortness of breath, abdominal pain, or any recent bowel and bladder habit changes. The patient follows with the Podiatry on outpatient basis weekly.(Dr. Osvaldo Cook). Was previously taking levofloxacin for 2 weeks and was supposed to change antibiotic after an appointment with Dr. Montejo. PMHx: Hypertension, diabetes PSHx: Previous amputation Family history: Not contribute Social history: Denies smoking, or any other drug use. Home medication: Metformin 1000 mg b.i.d., Lantus 55 units morning, 55 units evening, lisinopril, carvedilol Allergic history: No known allergy Patient seen and examined at bedside. Patient is still complaining of right lower limb pain and discomfort Patient reports: No new complaints Changes from previous H/P or p: No Changes Patient was seen today for clinical evaluation. Labs and chart reviewed. Leukocytosis trending down, hemoglobin is stable. Patient was seen by Podiatry. Recommended to continue IV antibiotic, no intervention needed at this moment. Positive for Streptococcus group B, pending sensitivity report. ordered for repeat blood culture. Wound culture pending. Plan is to continue current management. Patient prefers to be discharged with the home health with the IV antibiotic, deferred SNF. Once the wound culture and sensitive reports available patient be discharged with the IV antibiotic with the home health. Objective vital signs Vital Sign Date Time Temp Pulse Resp B/P (MAP) Pulse Ox O2 Delivery O2 Flow Rate FiO2 07/25/24 09:00 93 18 121/52 (75) 95 07/25/24 08:00 Room Air* 0 21 07/25/24 08:00 98.3 98.3 Total Intake and Output 07/24/24 07/24/24 07/25/24 15:00 23:00 07:00 Intake Total 860 ml 2000 ml 2000 ml Output Total 500 ml 2075 ml Balance 860 ml 1500 ml -75 ml medications Current Medications Medications Dose Ordered Sig/Nimesh Route Start Time Stop Time Status Last Admin Dose Admin Vancomycin HCl 0 ml @ 0 mls/hr UD IV 07/23/24 22:45 Piperacillin Sod/ Tazobactam Sod 100 ml @ 100 mls/hr Q8HP IV 07/24/24 06:00 07/25/24 05:07 100 MLS/HR Diagnostic Test (Pha) 1 strip ACHS 07/24/24 07:00 07/25/24 10:29 1 STRIP Insulin Human Regular AC SC 07/24/24 07:00 07/25/24 10:33 12 UNITS Insulin Human Regular HS SC 07/24/24 22:00 07/24/24 21:48 6 UNITS Dextrose 50 ml UD PRN IV 07/23/24 22:45 Sodium Chloride 1,000 ml @ 150 mls/hr Q6H40M IV 07/24/24 10:15 07/25/24 10:29 150 MLS/HR Sodium Chloride 10 ml QSHIFT@10,22 IV 07/24/24 22:00 07/25/24 07:28 10 ML Vancomycin HCl 250 ml @ 200 mls/hr Q12HR IV 07/24/24 22:30 07/25/24 07:28 200 MLS/HR Examination Dermatological: Skin is dry with mild erythema and some maceration around the wound site TMA of the right foot Mild non-pitting edema present bilaterally Wound: Location:Right plantar foot Measures: 6 cm in length, 4 cm in width, and 1 cm in depth. Depth: Full thickness Base: Mix of granulation/slough Drainage: None Odor: None Periwound: cellulitis Vascular: Dorsalis pedis and posterior tibial pulses are 1+ bilaterally Capillary refill is under 2 seconds Skin temperature is warm bilaterally Neurologic: Protective sensation is absent on the plantar forefoot bilaterally Monofilament testing reveals decreased sensation in multiple plantar sites Musculoskeletal: Range of motion at the ankle and MTP joints is within normal limits. Strength is 5/5 in all tested muscle groups. Gait is antalgic due to offloading of the affected limb. laboratory and microbiology Laboratory Tests 07/25/24 03:32 Test 07/25/24 03:32 Range/Units Serum Glucose 241 H 74-106 mg/dL Microbiology Date/Time Source Procedure Growth Status 07/23/24 21:02 Blood Blood Culture - Preliminary Streptococcus Group B Resulted Problem List/Assessment/Plan Problem List/Assessment/Plan Assessment and plan-patient with cellulitis and osteomyelitis of the right foot. Leukocytosis trending down, hemoglobin is stable. Patient was seen by Podiatry. Recommended to continue IV antibiotic, no intervention needed at this moment. Positive for Streptococcus group B, pending sensitivity report. o rdered for repeat blood culture. Pending wound culture report. Patient prefers home health for IV antibiotic therapy, deferred SNF. Septic shock, likely due to sepsis Sepsis, likely due to osteomyelitis/cellulitis Diabetic foot Right lower limb cellulitis/osteomyelitis Uncontrolled diabetes type 2 with hyperglycemia History of hypertension Status post partial amputation MRI shows, osteomyelitis involving the calcaneus, navicular and cuneiforms, diffuse cellulitis in the midfoot Podiatry consulted, recommended IV antibiotic for 6 weeks, and outpatient follow up Wound consult Wound dressing Wound/blood culture Empiric antibiotic, vancomycin and Zosyn IV fluid Pain management Possible JONATHAN, likely VMN, baseline record not available IV fluid Hypomagnesemia, repleted Hyponatremia Moderate anemia, microcytic hypochromic Goals of care, Code status ; discussed with >15 minutes PUD prophylaxis: DVT prophylaxis: Plan discussed with Dr. Gu , nursing staff, Total time spent on patient evaluation, chart review, assessment and plan, discussion discussion >35 minutes Plan discussed with: Patient, Other (RN) FRANCISCO MONGE RESIDENT Jul 25, 2024 11:09
[2024-07-25] MEDS: MUPIROCIN 2% OINT 15gm or 22gm FOR MRSA NARES EACHNOSTRI SCH (21:20)
[2024-07-26] VITALS (8 sets, daily range): BP systolic 120–165; BP diastolic 70–90; PULSE 78–91; RESP 17–19; TEMP 97.8–98.4; O2SAT 95–97
[2024-07-26 07:39] LABS: Basophils # (auto) 0.2 10 ^3/uL (0-0.2); Eosinophils # (auto) 0.3 10 ^3/uL (0-0.8); Eosinophils % (auto) 3.2 % (0.0-7.0); Hematocrit 33.3 % (41.0-53.0); Hemoglobin 10.6 g/dL (13.5-17.5); Lymphocytes # (auto) 2.2 10 ^3/uL (0.4-5.4); Lymphocytes % (auto) 20.2 % (10.0-50.0); Mean Corpuscular Hemoglobin 23.6 pg (28.0-32.0); Mean Corpuscular Hgb Conc. 31.9 g/dL (32.0-36.0); Mean Corpuscular Volume 73.9 fL (80.0-100.0); Monocytes # (auto) 0.6 10 ^3/uL (0-1.3); Monocytes % (auto) 5.7 % (0.0-12.0); Neutrophils # (auto) 7.3 10 ^3/uL (1.6-8.6); Neutrophils % (auto) 68.9 % (37.0-80.0); Nucleated Red Blood Cells % 0.1 %; Platelet Count (auto) 473 10^3/uL (140-450); Red Cell Distribution Width 17.5 % (11.8-14.3); White Blood Cell 10.7 10^3/uL (4.4-10.8)
[2024-07-26 07:51] LABS: Albumin 3.6 g/dL (3.2-4.8); Alkaline Phosphatase 71 U/L (46-116); Anion Gap 8 (5-15); BUN/Creatinine Ratio 13.7 (10.0-20.0); Blood Urea Nitrogen 13 mg/dL (9-23); Calcium 9.1 mg/dL (8.7-10.4); Carbon Dioxide 25 mmol/L (20-31); Chloride 105 mmol/L (98-107); Magnesium 1.7 mg/dL (1.6-2.6); Potassium 4.3 mmol/L (3.5-5.1); Sodium 138 mmol/L (136-145); Total Protein 6.7 g/dL (5.7-8.2)
[2024-07-26 07:52] LABS: Bilirubin, Total 0.3 mg/dL (0.2-1.0)
[2024-07-26 07:58] LABS: Alanine Aminotransferase 9 U/L (7-40); Aspartate Aminotransferase 11 U/L (13-40); Glucose 201 mg/dL (74-106)
[2024-07-26] MEDS: INSULIN LANTUS (GLARGINE) 1 /0.01ml (100units/ml) SC SCH (10:25)
[2024-07-26] MEDS: CEFEPIME 1GM/ 50ML 50 ML IV SCH (15:30)
--- NOTE | 2024-07-26 16:54 | DVHPNRES ---
Progress Note Date Seen: Jul 26, 2024 Resident Creating Document: SHAREE ERICKSON MARCIO Has the PT tested + for MRSA If YES, has PT been informed?: No Medical Necessity Reason Pt with a Central, PICC or Fol: No Subjective Review of Systems Patient seen and examined at the bedside. Patient is feeling better since admission but still complained of generalized weakness and leg pain. Objective vital signs Vital Sign Date Time Temp Pulse Resp B/P (MAP) Pulse Ox O2 Delivery O2 Flow Rate FiO2 07/26/24 13:00 98.0 81 18 120/87 (98) 96 98.0 07/26/24 08:00 Room Air* 0 21 Total Intake and Output 07/25/24 07/25/24 07/26/24 15:00 23:00 07:00 Intake Total 1500 ml 650 ml 920 ml Output Total 2851 ml 1000 ml Balance 1500 ml -2201 ml -80 ml medications Current Medications Medications Dose Ordered Sig/Nimesh Route Start Time Stop Time Status Last Admin Dose Admin Vancomycin HCl 0 ml @ 0 mls/hr UD IV 07/23/24 22:45 Diagnostic Test (Pha) 1 strip ACHS 07/24/24 07:00 07/26/24 13:07 1 STRIP Insulin Human Regular AC SC 07/24/24 07:00 07/26/24 12:00 12 UNITS Insulin Human Regular HS SC 07/24/24 22:00 07/25/24 21:31 6 UNITS Dextrose 50 ml UD PRN IV 07/23/24 22:45 Sodium Chloride 10 ml QSHIFT@10,22 IV 07/24/24 22:00 07/26/24 10:25 10 ML Vancomycin HCl 250 ml @ 200 mls/hr Q12HR IV 07/24/24 22:30 07/26/24 10:31 200 MLS/HR Mupirocin 1 applic BID EACHNOSTRI 07/25/24 22:00 07/30/24 21:59 07/26/24 10:30 1 APPLIC Insulin Glargine 40 units BID@1000,2200 SC 07/26/24 10:00 07/26/24 10:25 40 UNITS Cefepime HCl 50 ml @ 12.5 mls/hr Q8HR IV 07/26/24 14:00 07/26/24 15:30 12.5 MLS/HR Examination General Appearance: Alert, Oriented X3, Cooperative, No acute distress HEENT: Atraumatic, PERRLA, EOMI, Mucous membrane moist/pink Respiratory: Clear to auscultation, Normal air movement Cardiovascular: Regular rate, Normal S1, Normal S2, No murmurs, no chest wall tenderness Abdominal: Normal bowel sounds, Soft, No tenderness, No hepatospenomegaly, No masses Extremities: Right lower limb are is amputated at the level of fingers Skin: There is an open ulcer 4 x 6 cm at the amputated area with scant amount of purulent discharge Neuro: Normal gait, Normal speech, Strength at 5/5 X4 ext, Normal tone, Sensation intact, Cranial nerves 3-12 NL, Reflexes 2+ Psych/Mental Status: Mental status NL, Mood NL laboratory and microbiology Laboratory Tests 07/26/24 05:32 Test 07/26/24 05:32 Range/Units Serum Glucose 201 H 74-106 mg/dL Microbiology Date/Time Source Procedure Growth Status 07/25/24 12:49 Blood Blood Culture - Preliminary NO GROWTH AFTER 24 HOURS OF INCUBATION. Resulted 07/25/24 09:34 Foot Right Gram Stain - Final Resulted 07/25/24 09:34 Foot Right Wound Culture - Preliminary Resulted Labs and/or images reviewed: Labs reviewed by me, Image(s) reviewed by me Problem List/Assessment/Plan Problem List/Assessment/Plan Septic shock, likely due to sepsis Sepsis, likely due to osteomyelitis/cellulitis Diabetic foot Right lower limb cellulitis/osteomyelitis Uncontrolled diabetes type 2 with hyperglycemia History of hypertension Status post partial amputation MRI shows, osteomyelitis involving the calcaneus, navicular and cuneiforms, diffuse cellulitis in the midfoot Podiatry consulted, recommended IV antibiotic for 6 weeks, and outpatient follow up Wound consult Wound dressing Wound/blood culture Empiric antibiotic, cefepime and doxycycline IV fluid Pain management Possible JONATHAN, likely VMN, baseline record not available IV fluid Hypomagnesemia, repleted Hyponatremia Moderate anemia, microcytic hypochromic DIET: Diabetic diet DVT PROPHYLAXIS: Lovenox CODE STATUS: Goal of care discussed for more than 18 minutes, full code DISPOSITION: LYNN status Culture showed cocci in chain, and 2nd blood culture showed cocci in cluster, waiting for antibiogram results. Repeated blood culture. Patient's status and plan discussed with the patient. Case discussed with Dr. Gu. Plan discussed with: Patient, Other My Orders My Orders Orders - SHAREE ERICKSON Procedure Category Date Status Time Insulin Lantus PHA 07/26/24 In Process (Glargine) (Lantus) 10:00 Blood Culture TEDDY 07/26/24 In Process 13:31 Cefepime 1gm/ 50ml PHA 07/26/24 In Process (Maxipime 1gm/50ml) 14:00 Dietary Evaluation Review Comments: 1) Initiate Pro-Stat @ 30 mL bid 2) Initiate Binh @ 1 pk bid 3) Initiate vitamin C @ 500 mg bid and zinc sulfate @ 220 mg qd for 7-10 days 4) Initiate multivitamin @ 1 tb qd 5) Refer to outpatient RD/[facility] for diabetes education and weight management 6) Follow-up with director data processing 7) Continue to monitor I&O, labs, and skin integrity Expected Outcomes/Goals: 1) labs to improve 2) wound to improve 3) f/u in 3-5 days SHAREE ERICKSON Jul 26, 2024 16:54
[2024-07-26] MEDS: DOXYCYCLINE 100MG/100ML 100 ML IV SCH (18:11)
[2024-07-27] VITALS (7 sets, daily range): BP systolic 134–173; BP diastolic 79–90; PULSE 83–98; RESP 16–18; TEMP 97.4–98; O2SAT 95–98
[2024-07-27] MEDS: hydrALAZINE HCL 20 MG/ML VL IV ONE ×2 (05:00→05:11)
[2024-07-27] MEDS: ACETAMINOPHEN 325 MG TAB PO ONE ×2 (05:00→05:11)
[2024-07-27] MEDS: INSULIN LANTUS (GLARGINE) 1 /0.01ml (100units/ml) SC SCH (09:00)
[2024-07-27] MEDS ORDERED: ACETAMINOPHEN 325 MG TAB PO PRN (10:00)
[2024-07-27] MEDS: LISINOPRIL 20 MG TAB PO ONE (10:14)
[2024-07-27] MEDS: CARVEDILOL 12.5 MG TAB PO ONE (10:14)
[2024-07-27] MEDS: INSULIN LANTUS (GLARGINE) 1 /0.01ml (100units/ml) SC ONE (10:15)
[2024-07-27 10:22] LABS: White Blood Cell 10.2 10^3/uL (4.4-10.8)
[2024-07-27 10:26] LABS: Hematocrit 34.2 % (41.0-53.0); Hemoglobin 11.2 g/dL (13.5-17.5); Mean Corpuscular Hemoglobin 24.1 pg (28.0-32.0); Mean Corpuscular Hgb Conc. 32.8 g/dL (32.0-36.0); Mean Corpuscular Volume 73.6 fL (80.0-100.0); Platelet Count (auto) 467 10^3/uL (140-450); Red Blood Cells 4.65 10^6/uL (4.5-5.90); Red Cell Distribution Width 17.9 % (11.8-14.3)
[2024-07-27 10:27] LABS: Band Neutrophils % (manual) 0; Basophils % (manual) 0 (0.0-2.0); Blast Cells 0; Metamyelocytes % 0; Myelocytes % 0; Promyelocytes % 0; Reactive Lymphocytes 0
[2024-07-27 10:40] LABS: Alanine Aminotransferase 11 U/L (7-40); Albumin 3.7 g/dL (3.2-4.8); Alkaline Phosphatase 67 U/L (46-116); Anion Gap 9 (5-15); Aspartate Aminotransferase 17 U/L (13-40); BUN/Creatinine Ratio 11.6 (10.0-20.0); Blood Urea Nitrogen 10 mg/dL (9-23); Calcium 9.2 mg/dL (8.7-10.4); Carbon Dioxide 24 mmol/L (20-31); Chloride 101 mmol/L (98-107)
[2024-07-27 10:42] LABS: Bilirubin, Total 0.3 mg/dL (0.2-1.0); Glucose 298 mg/dL (74-106); Sodium 134 mmol/L (136-145)
[2024-07-27 10:50] LABS: Eosinophils % (manual) 1 (0-7); Lymphocytes % (manual) 21 (10.0-50.0); Monocytes % (manual) 10 (0-12); Platelet Estimate Adequate
--- NOTE | 2024-07-27 14:28 | DVHPNRES ---
Progress Note Date Seen: Jul 27, 2024 Resident Creating Document: SHAREE ERICKSON MARCIO Has the PT tested + for MRSA If YES, has PT been informed?: No Medical Necessity Reason Pt with a Central, PICC or Fol: No Subjective Review of Systems Patient seen and examined at the bedside. Patient is feeling better since admission but still complaining of leg pain. Patient reports: No new complaints, Feels better Changes from previous H/P or p: Changes Objective vital signs Vital Sign Date Time Temp Pulse Resp B/P (MAP) Pulse Ox O2 Delivery O2 Flow Rate FiO2 07/27/24 12:45 97.8 94 18 146/87 (106) 98 97.8 07/27/24 08:00 Room Air* 0 21 Total Intake and Output 07/26/24 07/26/24 07/27/24 15:00 23:00 07:00 Intake Total 350 ml 1750 ml 825 ml Output Total 1850 ml 700 ml Balance 350 ml -100 ml 125 ml medications Current Medications Medications Dose Ordered Sig/Nimesh Route Start Time Stop Time Status Last Admin Dose Admin Diagnostic Test (Pha) 1 strip ACHS 07/24/24 07:00 07/27/24 11:52 1 STRIP Insulin Human Regular AC SC 07/24/24 07:00 07/27/24 11:52 12 UNITS Insulin Human Regular HS SC 07/24/24 22:00 07/26/24 21:28 6 UNITS Dextrose 50 ml UD PRN IV 07/23/24 22:45 Sodium Chloride 10 ml QSHIFT@10,22 IV 07/24/24 22:00 07/27/24 08:56 10 ML Mupirocin 1 applic BID EACHNOSTRI 07/25/24 22:00 07/30/24 21:59 07/27/24 08:57 1 APPLIC Cefepime HCl 50 ml @ 12.5 mls/hr Q8HR IV 07/26/24 14:00 07/27/24 05:12 12.5 MLS/HR Doxycycline Hyclate 100 ml @ 50 mls/hr Q12H IV 07/26/24 18:00 07/27/24 05:12 50 MLS/HR Insulin Glargine 55 units BID@1000,2200 SC 07/27/24 09:00 Lisinopril 20 mg DAILY PO 07/28/24 10:00 Carvedilol 12.5 mg Q12HR PO 07/27/24 22:00 Acetaminophen 650 mg Q4HP PRN PO 07/27/24 10:00 Examination General Appearance: Alert, Oriented X3, Cooperative, No acute distress HEENT: Atraumatic, PERRLA, EOMI, Mucous membrane moist/pink Respiratory: Clear to auscultation, Normal air movement Cardiovascular: Regular rate, Normal S1, Normal S2, No murmurs, no chest wall tenderness Abdominal: Normal bowel sounds, Soft, No tenderness, No hepatospenomegaly, No masses Extremities: Right lower limb are is amputated at the level of fingers Skin: There is an open ulcer 4 x 6 cm at the amputated area with scant amount of purulent discharge Neuro: Normal gait, Normal speech, Strength at 5/5 X4 ext, Normal tone, Sensation intact, Cranial nerves 3-12 NL, Reflexes 2+ Psych/Mental Status: Mental status NL, Mood NL laboratory and microbiology Laboratory Tests 07/27/24 09:40 Test 07/27/24 09:40 Range/Units Serum Glucose 298 H 74-106 mg/dL Microbiology Date/Time Source Procedure Growth Status 07/25/24 12:49 Blood Blood Culture - Preliminary NO GROWTH AFTER 48 HOURS OF INCUBATION. Resulted 07/25/24 09:34 Foot Right Gram Stain - Final Resulted 07/25/24 09:34 Foot Right Wound Culture - Preliminary Resulted Labs and/or images reviewed: Labs reviewed by me, Image(s) reviewed by me Problem List/Assessment/Plan Problem List/Assessment/Plan Septic shock, likely due to sepsis Sepsis, likely due to osteomyelitis/cellulitis Diabetic foot Right lower limb cellulitis/osteomyelitis Uncontrolled diabetes type 2 with hyperglycemia History of hypertension Status post partial amputation MRI shows, osteomyelitis involving the calcaneus, navicular and cuneiforms, diffuse cellulitis in the midfoot Podiatry consulted, recommended IV antibiotic for 6 weeks, and outpatient follow up Wound consult Wound dressing Wound/blood culture Empiric antibiotic, cefepime and doxycycline IV fluid Pain management Possible JONATHAN, likely VMN, baseline record not available IV fluid Hypomagnesemia, repleted Hyponatremia Moderate anemia, microcytic hypochromic DIET: Diabetic diet DVT PROPHYLAXIS: Lovenox CODE STATUS: Goal of care discussed for more than 18 minutes, full code DISPOSITION: LYNN status Patient needs IV antibiotic for 6 weeks, clinical social worker consulted for providing home health care for IV antibiotics. Patient's status and plan discussed with the patient. Case discussed with Dr. Gu. Plan discussed with: Patient, Other (RN) My Orders My Orders Orders - SHAREE ERICKSON Procedure Category Date Status Time Doxycycline PHA 07/26/24 In Process 100mg/100ml 18:00 Insulin Lantus PHA 07/27/24 In Process (Glargine) (Lantus) 09:00 Carvedilol Tablet PHA 07/27/24 In Process (Coreg Tablet) 22:00 Lisinopril Tablet PHA 07/28/24 In Process (Zestril Tablet) 10:00 Acetaminophen Tablet PHA 07/27/24 In Process (Tylenol Tablet) 10:00 * [facility]ung[facility] Jump Master CONS 07/27/24 Transmitted Consult Dietary Evaluation Review Comments: 1) Initiate Pro-Stat @ 30 mL bid 2) Initiate Binh @ 1 pk bid 3) Initiate vitamin C @ 500 mg bid and zinc sulfate @ 220 mg qd for 7-10 days 4) Initiate multivitamin @ 1 tb qd 5) Refer to outpatient RD/[facility] for diabetes education and weight management 6) Follow-up with lard tub washer 7) Continue to monitor I&O, labs, and skin integrity Expected Outcomes/Goals: 1) labs to improve 2) wound to improve 3) f/u in 3-5 days SHAREE ERICKSON Jul 27, 2024 14:28
[2024-07-27] MEDS: cefTRIAXone 1GM/50ML D5W 50 ML IV ONE (16:31)
[2024-07-27] MEDS: CARVEDILOL 12.5 MG TAB PO SCH (22:10)
[2024-07-28] VITALS (7 sets, daily range): BP systolic 120–144; BP diastolic 68–84; PULSE 80–94; RESP 18–20; TEMP 97.9–98.3; O2SAT 96–97
[2024-07-28 06:57] LABS: Alanine Aminotransferase 13 U/L (7-40); Albumin 3.8 g/dL (3.2-4.8); Alkaline Phosphatase 67 U/L (46-116); Anion Gap 8 (5-15); Aspartate Aminotransferase 17 U/L (13-40); BUN/Creatinine Ratio 15.4 (10.0-20.0); Blood Urea Nitrogen 14 mg/dL (9-23); Calcium 9.5 mg/dL (8.7-10.4); Carbon Dioxide 24 mmol/L (20-31); Chloride 103 mmol/L (98-107); Potassium 3.8 mmol/L (3.5-5.1); Total Protein 7.2 g/dL (5.7-8.2)
[2024-07-28 07:06] LABS: Bilirubin, Total 0.2 mg/dL (0.2-1.0); Glucose 197 mg/dL (74-106); Sodium 135 mmol/L (136-145)
[2024-07-28 07:08] LABS: Hemoglobin 11.7 g/dL (13.5-17.5)
[2024-07-28 07:10] LABS: Mean Corpuscular Hemoglobin 24.3 pg (28.0-32.0); Mean Corpuscular Hgb Conc. 32.5 g/dL (32.0-36.0); Mean Corpuscular Volume 74.7 fL (80.0-100.0); Platelet Count (auto) 483 10^3/uL (140-450); Red Blood Cells 4.82 10^6/uL (4.5-5.90); Red Cell Distribution Width 18.2 % (11.8-14.3); White Blood Cell 11.6 10^3/uL (4.4-10.8)
[2024-07-28 07:15] LABS: Band Neutrophils % (manual) 0; Basophils % (manual) 0 (0.0-2.0); Blast Cells 0; Metamyelocytes % 0; Myelocytes % 0; Promyelocytes % 0; Reactive Lymphocytes 0
[2024-07-28] MEDS ORDERED: DOXY1CAP58 PO (08:28)
[2024-07-28 08:39] LABS: Eosinophils % (manual) 1 (0-7); Lymphocytes % (manual) 21 (10.0-50.0); Monocytes % (manual) 7 (0-12); Platelet Estimate Increased
[2024-07-28] MEDS: LISINOPRIL 20 MG TAB PO SCH (09:17)
[2024-07-28] MEDS: cefTRIAXone 1GM/50ML D5W 50 ML IV SCH (09:18)
--- NOTE | 2024-07-28 13:29 | DVHDSRES ---
Discharge Summary Date of Admission Resident Creating Document: SHAREE ERICKSON RESDIENT Jul 23, 2024 at 22:34 Date of Discharge: Jul 28, 2024 Admitting Diagnosis Osteomyelitis Labs/Diagnostic Data: Laboratory Results Test 07/28/24 11:32 07/28/24 05:30 07/26/24 11:56 07/26/24 05:32 POC Glucose 214 mg/dl (70-106) White Blood Count 11.6 10^3/uL (4.4-10.8) Red Blood Count 4.82 10^6/uL (4.5-5.90) Hemoglobin 11.7 g/dL (13.5-17.5) Hematocrit 36.0 % (41.0-53.0) Mean Corpuscular Volume 74.7 fL (80.0-100.0) Mean Corpuscular Hemoglobin 24.3 pg (28.0-32.0) Mean Corpuscular Hemoglobin Concent 32.5 g/dL (32.0-36.0) Red Cell Distribution Width 18.2 % (11.8-14.3) Platelet Count 483 10^3/uL (140-450) Mean Platelet Volume 7.2 fL (6.9-10.8) Neutrophils (%) (Auto) % (37.0-80.0) Lymphocytes (%) (Auto) % (10.0-50.0) Monocytes (%) (Auto) % (0.0-12.0) Basophils (%) (Auto) % (0.0-2.0) Neutrophils # (Auto) 10 ^3/uL (1.6-8.6) Lymphocytes # (Auto) 10 ^3/uL (0.4-5.4) Monocytes # (Auto) 10 ^3/uL (0-1.3) Differential Total Cells Counted 100.0 (100) Neutrophils % (Manual) 71 (37.0-80.0) Band Neutrophils % (Manual) 0 Lymphocytes % (Manual) 21 (10.0-50.0) Monocytes % (Manual) 7 (0-12) Eosinophils % (Manual) 1 (0-7) Basophils % (Manual) 0 (0.0-2.0) Metamyelocytes % (manual) 0 Myelocytes % (Manual) 0 Promyelocytes % (Manual) 0 Blast Cells % (Manual) 0 Reactive Lymphocytes 0 Platelet Estimate Increased Microcytosis Slight Sodium Level 135 mmol/L (136-145) Potassium Level 3.8 mmol/L (3.5-5.1) Chloride Level 103 mmol/L (98-107) Carbon Dioxide Level 24 mmol/L (20-31) Anion Gap 8 (5-15) Blood Urea Nitrogen 14 mg/dL (9-23) Creatinine 0.91 mg/dL (0.700-1.30) Glomerular Filtration Rate Calc 100 mL/min (>90) BUN/Creatinine Ratio 15.4 (10.0-20.0) Serum Glucose 197 mg/dL (74-106) Calcium Level 9.5 mg/dL (8.7-10.4) Total Bilirubin 0.2 mg/dL (0.2-1.0) Aspartate Amino Transferase (AST) 17 U/L (13-40) Alanine Aminotransferase (ALT) 13 U/L (7-40) Alkaline Phosphatase 67 U/L (46-116) Total Protein 7.2 g/dL (5.7-8.2) Albumin 3.8 g/dL (3.2-4.8) Vancomycin Level Trough 46.2 ug/mL (5-10) Eosinophils (%) (Auto) 3.2 % (0.0-7.0) Eosinophils # (Auto) 0.3 10 ^3/uL (0-0.8) Basophils # (Auto) 0.2 10 ^3/uL (0-0.2) Nucleated Red Blood Cells 0.1 % Magnesium Level 1.7 mg/dL (1.6-2.6) Test 07/24/24 17:34 07/24/24 14:49 07/24/24 09:15 07/23/24 22:53 Random Vancomycin Level 5.5 ug/mL (5-10) Urine Color Yellow (Yellow) Urine Clarity Clear (Clear) Urine pH 5.5 (5.0-9.0) Urine Specific [place] 1.029 (1.001-1.035) Urine Protein Trace (Negative) Urine Ketones Negative (Negative) Urine Blood Negative /uL (Negative) Urine Nitrite Negative (Negative) Urine Bilirubin Negative (Negative) Urine Urobilinogen Normal mg/dL (Negative) Urine Leukocyte Esterase Negative /uL (Negative) Urine RBC 2 /hpf (0 - 3) Urine Microscopic WBC 2 /HPF (0-3) Urine Squamous Epithelial Cells None seen /hpf (<5) Urine Bacteria None seen /hpf (None Seen) Urine Glucose 2+ mg/dL (Normal) Urine Opiates Screen Neg (NEGATIVE) Urine Fentanyl Screen Neg (NEGATIVE) Urine Barbiturates Screen Neg (NEGATIVE) Urine Phencyclidine Screen Neg (NEGATIVE) Urine Amphetamines Screen Neg (NEGATIVE) Urine Benzodiazepines Screen Neg (NEGATIVE) Urine Cocaine Screen Neg (NEGATIVE) Urine Cannabinoids Screen Neg (NEGATIVE) Hemoglobin A1c 9.2 % A1C (<5.7) Lactic Acid Level 1.4 mmol/L (0.4-2.0) Test 07/23/24 21:02 Hypochromasia (manual) Moderate Anisocytosis (manual) Slight Prothrombin Time 11.7 sec (9.3-11.8) Prothrombin Time INR 1.12 (0.9-1.15) Activated Partial Thromboplast Time 30.0 SEC (24.5-34.5) Other Laboratory Tests 07/28/24 05:30 Brief Hx & Hospital Course: This is a 54-year-old male with past medical history of hypertension, diabetes came to the hospital due to dizziness 2 days. Patient has a chronic foot ulcer, underwent amputation 2 years back and since 3 weeks has been open and has purulent discharge. He also reports nausea, vomiting, headache, fever and chill and lower limb pain and discomfort.. He denies chest pain, shortness of breath, abdominal pain, or any recent bowel and bladder habit changes. The patient follows with the Podiatry on outpatient basis weekly.(Dr. Osvaldo Cook). Was previously taking levofloxacin for 2 weeks and was supposed to change antibiotic after an appointment with Dr. Montejo. PMHx: Hypertension, diabetes PSHx: Previous amputation Family history: Not contribute Social history: Denies smoking, or any other drug use. Home medication: Metformin 1000 mg b.i.d., Lantus 55 units morning, 55 units evening, lisinopril, carvedilol Allergic history: No known allergy Hospital course: The patient was admitted at the line of septic shock second-degree to osteomyelitis/cellulitis. Patient was given empiric antibiotic of vancomycin, Zosyn, IV fluid, empirically. MRI performed showed osteomyelitis involving the calcaneus, navicular and cuneiforms, diffuse cellulitis in the midfoot. Podiatry consulted, Podiatry consulted, recommended IV antibiotic for 6 weeks, and outpatient follow up. Blood culture performed, 1st set showed Gram-positive cocci in chain and 2nd set showed Gram-positive cocaine in clusters, and subsequently the 3rd blood culture set showed no growth after IV antibiotic therapy. Wound culture showed beta hemolytic streptococci recent sensitive to ampicillin and penicillin, subsequently antibiotics downgraded to Rocephin and doxycycline. Patient also had JONATHAN, by giving IV fluid kidney function improved. Diabetes type 2 with hyperglycemia was treated with Lantus 55 units b.i.d. and insulin according to sliding scale. On 07/28/2024, the patient was feeling better since admission. Blood pressure, sepsis cellulitis improved with IV antibiotic and IV fluid. Discharge plan discussed with the patient the patient discharged home with IV antibiotic. Discharge plan: Follow up with the PCP within 1 week of the discharge Follow up with the Podiatry on outpatient basis. Rocephin 1 g b.i.d. for 6 weeks with follow up of ESR/CRP, CBC and CMP with podiatry on weekly basis Doxycycline 100 mg b.i.d. for 6 weeks Continue home meds Operations or Procedures Condition at Discharge: Fair Final Diagnosis/Problems List Septic shock, likely due to sepsis Sepsis, likely due to osteomyelitis/cellulitis Diabetic foot Right lower limb cellulitis/osteomyelitis Uncontrolled diabetes type 2 with hyperglycemia History of hypertension Status post partial amputation Possible JONATHAN, likely VMN, baseline record not available Hypomagnesemia, repleted Hyponatremia Moderate anemia Discharge Disposition: Home with Health Services Discharge Instruct/Medications Diet: Consistent carbohydrate Activity: No Restrictions, As Tolerated Follow Up/Referral: Follow up with the PCP within 1 week of the discharge. Follow up with the Podiatry on outpatient basis. Medications: Doxycycline 100 mg twice daily for 6 weeks IV Rocephin 1 g twice daily for 6 weeks per home health Continue home medicine Discharge Statement: "Patient was advised to return to the ER or call 911 if any headaches, dizziness, shortness of breath, chest pain, abdominal pain, bleeding, fevers, or worsening of medical condition. Patient was counseled about treatment plan, medications, possible side effects, patientverbalized understanding. All questions were answered to the best of my ability. This discharge took greater then 30 minutes in planning, reviewing documentation, counseling the patient, and discussing with other team members." ASSESSMENT ASSESSMENT Assessment OSTEOMYELITIS HEWADMAL,HEWAD RESGENESIS Jul 28, 2024 13:29
== END 2024-07-28 12:45 | disposition home health service (06) | DRG 720 ==
LOC: EDBD 20:38 → ER 20:44 → OVERFLOW 22:34 → TELE-WESTW 07-25 21:05
PROVIDERS: ADMIT Student in an Organized Health Care Education/Training Program; ATTEND Emergency Medicine
PROC: 02HV33Z Insertion of Infusion Device into Superior Vena Cava, Percutaneous Approach (ICD-10-PCS; principal; 2024-07-24)
DX: A41.9 Sepsis, unspecified organism (principal); N17.0 Acute kidney failure with tubular necrosis; R65.21 Severe sepsis with septic shock; E87.1 Hypo-osmolality and hyponatremia; E11.621 Type 2 diabetes mellitus with foot ulcer; D50.9 Iron deficiency anemia, unspecified; L03.115 Cellulitis of right lower limb; L97.519 Non-pressure chronic ulcer of other part of right foot with unspecified severity; E11.69 Type 2 diabetes mellitus with other specified complication; E11.65 Type 2 diabetes mellitus with hyperglycemia; I10 Essential (primary) hypertension; E83.42 Hypomagnesemia; M86.8X7 Other osteomyelitis, ankle and foot; Z89.431 Acquired absence of right foot
CPT/HCPCS: 36415; 36569; 71045; 73630; 73718; 76937; 80053; 80202; 80307; 81001; 82962; 83036; 83605; 83735; 85007; 85025; 85027; 85610; 85730; 87040; 87077; 87081; 87186; 87205; 93005; 96361; 96374; 99291; G0378; J1815; J2543